=== PATIENT | male | born 1945 | race Caucasian/White ===

== ENCOUNTER 2019-06-25 10:11 | Day surgery (SDC) | payer OTHER ==
[~2019-06-25] VITALS: Ht 175.3 cm; Wt 97.5 kg
[2019-06-25 10:56] LABS: BILIRUBIN,URINE NEGATIVE (NEGATIVE); BLOOD, URINE NEGATIVE (NEGATIVE); CLARITY/URINE CLEAR (CLEAR); COLOR,URINE YELLOW (YELLOW); GLUCOSE,URINE NEGATIVE (NEGATIVE); KETONES,URINE NEGATIVE (NEGATIVE); LEUKOCYTE ESTERASE ,URINE NEGATIVE (NEGATIVE); NITRITE, URINE NEGATIVE (NEGATIVE); PH,URINE 6.5 (5.0-8.0); PROTEIN URINE NEGATIVE (NEGATIVE); UROBILINOGEN,URINE 0.2 (0.2-1.0)
[2019-06-25 11:02] LABS: BASOPHILS # (AUTO) 0.1 K/uL (0.0-0.2); BASOPHILS % (AUTO) 1.1 % (0.0-2.0); EOSINOPHILS # (AUTO) 0.2 K/uL (0.0-0.4); EOSINOPHILS % (AUTO) 1.7 % (0.0-4.0); HEMATOCRIT 39.8 % (36-54); HEMOGLOBIN 13.4 g/dL (14.0-18.0); LYMPHOCYTES # (AUTO) 2.3 K/uL (1.0-5.5); LYMPHOCYTES % (AUTO) 22.6 % (20.5-51.5); MEAN CORPUSCULAR HEMOGLOBIN 31 pg (27-31); MEAN CORPUSCULAR HGB CONC 34 % (32-36); MEAN CORPUSCULAR VOLUME 92 fL (79.0-98.0); MONOCYTES # (AUTO) 1.2 K/uL (0.0-1.0); MONOCYTES % (AUTO) 11.4 % (1.7-9.3); NEUTROPHILS # (AUTO) 6.5 K/uL (1.8-7.7); NEUTROPHILS % (AUTO) 63.2 % (40.0-70.0); PLATELET COUNT (AUTO) 300 K/uL (130-430); RED BLOOD CELL COUNT(AUTO) 4.31 MIL/uL (4.2-6.2); WHITE BLOOD COUNT (AUTO) 10.3 K/uL (4.8-10.8)
[2019-06-25] MEDS ORDERED: MIDAZOLAM HCL 5 MG/5 ML VIAL IVP ONE (12:00)
[2019-06-25] MEDS ORDERED: CEFAZOLIN 2 GM IVPB PREMIX 50 ML IV ONE (12:00)
[2019-06-25] MEDS ORDERED: BUPIVACAINE /PF 0.25% 30 ML VIAL INJ ONE (12:00)
[2019-06-25] MEDS ORDERED: BUPIVACAINE /DEX PF 0.75% SPINAL 2 ML AMP INJ ONE (12:00)
[2019-06-25] MEDS ORDERED: LR 1,000 ML IV.SOLN IV ONE (12:00)
[2019-06-25] MEDS ORDERED: MORPHINE SULFATE 10MG/10ML PF AMP EP ONE (12:00)
[2019-06-25] MEDS ORDERED: POLYMYXIN 500,000/BACIT.10,000 UNITS in NS IRR 1 L IR ONE (12:42)
[2019-06-25] MEDS ORDERED: NALOXONE HCL 0.4 MG/ML AMP (NARCAN) IVP PRN ×2 (13:15)
[2019-06-25] MEDS ORDERED: KETOROLAC TROMETHAMINE 60 MG/2 ML VIAL IM PRN (13:15)
[2019-06-25] MEDS ORDERED: fentaNYL CITRATE/PF 100 MCG/2 ML AMP IVP PRN ×2 (13:15)
[2019-06-25] MEDS ORDERED: MORPHINE SULFATE 10MG/10ML PF AMP SP SCH (13:15)
[2019-06-25] MEDS ORDERED: NALBUPHINE HCL 10 MG/ML AMP IVP PRN (13:15)
[2019-06-25] MEDS ORDERED: DIPHENHYDRAMINE INJ 50 MG/ML VIAL IVP PRN (13:15)
[2019-06-25] MEDS ORDERED: MORPHINE SULFATE 10 MG/ML VIAL IM PRN (13:45)
[2019-06-25] MEDS ORDERED: NACL 0.9% 1,000 ML IV SCH (13:45)
[2019-06-25 15:00] VITALS: BP_SYST 129
--- NOTE | 2019-06-25 15:00 | NUR ---
Admission notes, Received pt from OR, pt is aaox4, denies pain, dressing on right foot, intact and dry, no signs of bleeding. pt denies sensation on the lower legs, pt unable to move legs. will continue to monitor.
[2019-06-25 15:10] VITALS: BP_SYST 129
--- NOTE | 2019-06-25 16:00 | NUR ---
patient is awake , family at bedside, pt now able to wiggle his toes on the afftected side and has light sensation in the same area, pt has more profound sensation on the left toes and moves also move vigorously. vitals wnl.
[2019-06-25] MEDS: ONDANSETRON HCL 4 MG/2 ML VIAL IVP PRN (18:05)
--- NOTE | 2019-06-25 19:30 | NUR ---
Initial Note Received patient awake, alert and oriented with Radha at the bedside. No SOB noted. Denies any pain at this time. Patient has been vomiting and was last medicated at 1800. IVF at O. Left SCD in place. Right LE dressing CDI with polar care. Right LE kept straight and right foot elevated on pillow. Able to turn on his own. Care and monitoring will be provided per protocol. Call light within reach. Bed alarm on and at lowest position at all times. Needs attended. Kept warm and comfortable. VS stable.
--- NOTE | 2019-06-25 19:34 | NUR ---
Closing notes, pt endorsed to night jessica garcia, pt vomitted x3 this pt after dinner. given zofran. pt able to feel and move legs now.
[2019-06-25 20:00] VITALS: BP_SYST 151
[2019-06-25 20:44] VITALS: BP_SYST 129
--- NOTE | 2019-06-25 21:00 | NUR ---
RN Note No meds scheduled. Patient's will stay tonight. Given blankets and a pillow. Assisted patient to sit up in bed and he will try to urinate using the urinal. Given water. No urine at this time. Bladder doesn't feel distended. Will continue to monitor. Assisted back to bed. Elevated right foot on a pillow. Kept warm and comfortable. Patient will use his own BIPAP tonight.
--- NOTE | 2019-06-25 23:00 | NUR ---
RN Note Patient sleeping at this time with at the bedside. No SOB or grimacing noted.
--- NOTE | 2019-06-26 01:00 | NUR ---
RN Note Asleep, moves occasionally. No distress noted. at the bedside.
[2019-06-26 01:37] VITALS: BP_SYST 146
[2019-06-26] MEDS: ONDANSETRON HCL 4 MG/2 ML VIAL IVP PRN ×3 (03:37→12:41)
--- NOTE | 2019-06-26 03:37 | NUR ---
Vomiting Patient vomited about 100 ml greenish emesis. Medicated for vomiting. Will continue to monitor. Emptied urinal about 200 ml of yellow colored urine. Patient said that he can't urinate that much because he's lying in bed. Needs attended.
--- NOTE | 2019-06-26 04:50 | NUR ---
RN Note Patient sleeping comfortably in bed with at the bedside. IVF at O. No signs of acute distress at this time.
--- NOTE | 2019-06-26 06:23 | NUR ---
END NOTE AFEBRILE. VS STABLE. NO COMPLAIN OF SOB OR PAIN THROUGHOUT THE NIGHT. MEDICATED FOR VOMITING ONCE ALL ALL NIGHT. RIGHT LEG DRESSING CDI. RIGHT LEG KEPT STRAIGHT AND RIGHT FOOT ELEVATED ON PILLOWS. USED URINAL AD EMPTIED ABOUT 300 ML OF YELLOW COLORED URINE. IVF AT TKO. SCD ON LEFT LEG ONLY. CARE AND MONITORING PROVIDED PER PROTOCOL. CALL LIGHT WITHIN REACH. BED ALARM ON AND AT LOWEST POSITION AT ALL TIMES. FALL AND BLEEDING PRECAUTIONS OBSERVED. NEEDS ATTENDED. KEPT WARM AND COMFORTABLE.
--- NOTE | 2019-06-26 06:46 | NUR ---
BEDSIDE COMMODE PATIENT WANTS TO TRY TO HAVE A BM. PATIENT REFUSES BEDPAN. PROVIDED BEDSIDE COMMODE WITH ASSIST X2. HASN'T PASSED GAS AT THIS TIME.
--- NOTE | 2019-06-26 07:38 | NUR ---
Patient A/Ox4. Right ankle is wrapped with MEHDI. On room air. C/O difficulty urinating. Dr. Gomez is called, and straight cath is ordered.
--- NOTE | 2019-06-26 08:00 | NUR ---
900 mL of urine is drained from straight cath.
[2019-06-26] MEDS ORDERED: amLODIPine BESYLATE 5 MG TABLET PO SCH (09:00)
[2019-06-26] MEDS ORDERED: LISINOPRIL 20 MG TABLET PO SCH (09:00)
--- NOTE | 2019-06-26 12:00 | NUR ---
Dr. Gomez is here to see patient. States patient may go after PT eval.
[2019-06-26 12:49] VITALS: BP_SYST 142
[2019-06-26 12:59] VITALS: BP_SYST 144
--- NOTE | 2019-06-26 13:30 | NUR ---
ATUL MARROQUIN RECOMMENDS WHEELCHAIR AT HOME. DR. BARLOW IS CALLED FOR ORDER.
--- NOTE | 2019-06-26 16:26 | NUR ---
Discharge Planning: DCP faxed pt referral to [facility] (f [phone] p [phone]), [facility] 9f [phone] p [phone]) DCP to follow up.
--- NOTE | 2019-06-27 11:33 | NUR ---
Discharge Planning: DCP followed up with [facility] [phone] p [phone]) DCP spoke to Alise, stated pt had no DME coverage. [facility] (f [phone] p [phone]) DCP spoke to Adalberto, stated patient does have DME coverage at 20% in or out of network with a $300.00 deductible which has been met. To rent wheelchair the estimated rental cost would be $115.00-$130.00 monthly for 13 months out of pocket for patient in or out of network. Per [employer] insurance will not purchase DME. DCP called and explained no DME coverage per [facility]. When DCP received call with information from Adalberto at [facility], DCP called of patient and left message with new information. Addendum: 06/27/19 at 1158 by Sandy CISNEROS DCP receive a call from to correct the patient out of pocket for patient it will be $47.00 monthly, the number was reversed.
== END 2019-06-26 14:35 | disposition home or self-care (01) ==
LOC: SDS 10:11 → SMU 13:22 → SDS 06-26 14:35
PROVIDERS: ATTEND Orthopaedic Surgery
DX: S82.851A Displaced trimalleolar fracture of right lower leg, initial encounter for closed fracture (principal); G47.33 Obstructive sleep apnea (adult) (pediatric); I10 Essential (primary) hypertension; Z79.82 Long term (current) use of aspirin; Z79.899 Other long term (current) drug therapy; Z88.5 Allergy status to narcotic agent; Z90.81 Acquired absence of spleen; F17.200 Nicotine dependence, unspecified, uncomplicated; W10.9XXA Fall (on) (from) unspecified stairs and steps, initial encounter; Y93.89 Activity, other specified; Y92.89 Other specified places as the place of occurrence of the external cause; Y99.8 Other external cause status
CPT/HCPCS: 27822; 36415; 71045; 76000; 81003; 85025; 93005; 94010; 94660 ×2; 94760 ×2; 97162; C1713 ×4; C1763; C1769; J0690; J2250; J2274; J2310; J2405 ×2; J3490 ×2; J7030; J7120